=== PATIENT | female | born 1945 | race Caucasian/White ===

== ENCOUNTER → 2018-07-04 | Outpatient (CLI) | payer OTHER | END | disposition home or self-care (01) | LOC: OIH 14:05 | PROVIDERS: ATTEND Internal Medicine | DX: S93.331A Other subluxation of right foot, initial encounter (principal); S93.332A Other subluxation of left foot, initial encounter; S33.110A Subluxation of L1/L2 lumbar vertebra, initial encounter; M85.88 Other specified disorders of bone density and structure, other site; M19.041 Primary osteoarthritis, right hand; M77.32 Calcaneal spur, left foot; M77.31 Calcaneal spur, right foot; M43.26 Fusion of spine, lumbar region; M43.22 Fusion of spine, cervical region; M53.3 Sacrococcygeal disorders, not elsewhere classified; M79.642 Pain in left hand; X58.XXXA Exposure to other specified factors, initial encounter; Y93.89 Activity, other specified; Y92.89 Other specified places as the place of occurrence of the external cause; Y99.8 Other external cause status | CPT/HCPCS: 72040; 72100; 72200; 73130; 73630 ==

== ENCOUNTER 2018-10-26 05:30 | Day surgery (SDC) | payer OTHER ==
[~2018-10-26] VITALS: Ht 149.9 cm; Wt 55.5 kg
[2018-10-26 06:15] VITALS: BP 137/77
[2018-10-26 06:25] LABS: INR 1.01 (0.85-1.15); PROTHROMBIN TIME 10.6 SEC (9.6-11.6)
[2018-10-26] MEDS ORDERED: LIDOCAINE HCL-MPF 2% 5ML VIAL ONE (07:02)
[2018-10-26] MEDS ORDERED: PROPOFOL 10 MG/ML 20ML VIAL IV ONE ×2 (07:02)
[2018-10-26] MEDS ORDERED: SODIUM CHLORIDE 0.9% 1000ML 1,000 ML IV ONE (07:05)
[2018-10-26 07:24] VITALS: BP 77/35
[2018-10-26] MEDS ORDERED: DILT300C23 PO (07:24)
[2018-10-26] MEDS ORDERED: PREG50 PO (07:24)
[2018-10-26] MEDS ORDERED: ROSU5TAB PO (07:24)
[2018-10-26] MEDS ORDERED: CHOL500051 PO (07:24)
[2018-10-26] MEDS ORDERED: LACT1CAP72 PO (07:24)
[2018-10-26] MEDS ORDERED: UBID1CAP56 PO (07:24)
[2018-10-26] MEDS ORDERED: WARF3TAB59 PO (07:24)
[2018-10-26] MEDS ORDERED: LEFL10TA15 PO (07:24)
[2018-10-26] MEDS ORDERED: TRAZ150T79 PO (07:24)
[2018-10-26] MEDS ORDERED: CELE200 PO (07:24)
[2018-10-26] MEDS ORDERED: DULO60CA63 PO (07:24)
[2018-10-26] MEDS ORDERED: ETAN25I INJ (07:24)
[2018-10-26] MEDS ORDERED: FERR324T4 PO (07:24)
[2018-10-26] MEDS ORDERED: BIMA12.5OS OD (07:24)
[2018-10-26] MEDS ORDERED: MV-M1TAB20 PO (07:24)
[2018-10-26] MEDS ORDERED: DEXL60CA3 PO (07:24)
[2018-10-26] MEDS ORDERED: METO50TA18 PO (07:24)
[2018-10-26] MEDS ORDERED: LEVO100T12 PO (07:24)
[2018-10-26 07:29] VITALS: BP 85/39
[2018-10-26 07:37] VITALS: BP 93/48
[2018-10-26 07:41] VITALS: BP 115/64
== END 2018-10-26 08:00 | disposition home or self-care (01) ==
LOC: ENDO 05:30 → DAH 05:30 → ENDO 08:00
PROVIDERS: ATTEND Internal Medicine
DX: Z12.11 Encounter for screening for malignant neoplasm of colon (principal); D12.5 Benign neoplasm of sigmoid colon; K57.30 Diverticulosis of large intestine without perforation or abscess without bleeding; K64.8 Other hemorrhoids; J45.909 Unspecified asthma, uncomplicated; F41.9 Anxiety disorder, unspecified; M19.90 Unspecified osteoarthritis, unspecified site; E78.5 Hyperlipidemia, unspecified; I10 Essential (primary) hypertension; F32.9 Major depressive disorder, single episode, unspecified; E03.9 Hypothyroidism, unspecified; Z98.890 Other specified postprocedural states; Z90.710 Acquired absence of both cervix and uterus; Z98.49 Cataract extraction status, unspecified eye; Z79.899 Other long term (current) drug therapy; Z88.8 Allergy status to other drugs, medicaments and biological substances; Z88.0 Allergy status to penicillin; Z79.01 Long term (current) use of anticoagulants; I26.99 Other pulmonary embolism without acute cor pulmonale
CPT/HCPCS: 36415; 45380; 85610; 88305; 88313; 93005; A4606; J2704 ×2; J3490; J7030

== ENCOUNTER → 2018-11-15 | Outpatient (CLI) | payer OTHER ==
[~2018-11-15] MED LIST: BIMA12.5OS OD; CELE200 PO; CHOL500051 PO; DEXL60CA3 PO; DILT300C23 PO; DULO60CA63 PO; ETAN25I INJ; FERR324T4 PO; GADODIAMIDE 5 MMOL/10 ML VIAL 5 MMOL/10 ML ML IV ONE; LACT1CAP72 PO; LEFL10TA15 PO; LEVO100T12 PO; METO50TA18 PO; MV-M1TAB20 PO; PREG50 PO; ROSU5TAB PO; TRAZ150T79 PO; UBID1CAP56 PO; WARF3TAB59 PO
== END | disposition home or self-care (01) ==
LOC: RAH 09-24 14:08
PROVIDERS: ATTEND Internal Medicine
DX: M47.812 Spondylosis without myelopathy or radiculopathy, cervical region (principal); M48.02 Spinal stenosis, cervical region
CPT/HCPCS: 72156; A9579

== ENCOUNTER 2019-06-25 05:58 | Day surgery (SDC) | payer OTHER ==
[2019-06-17 16:10] VITALS: BP 119/73
[2019-06-17 16:34] LABS: BASOPHILS % (AUTO) 0.4 % (0.0-5.0); EOSINOPHILS % (AUTO) 2.5 % (0.0-8.0); HEMATOCRIT 41.5 % (36-48); MEAN CORPUSCULAR HEMOGLOBIN 31.3 pg (27.0-33.0); MEAN CORPUSCULAR VOLUME 94.8 fL (79-99); MONOCYTES % (AUTO) 4.5 % (3.0-13.0); NEUTROPHILS % (AUTO) 13.6 % (40.0-77.0); NUCLEATED RED BLOOD CELLS 0.2 % (0.0-0.19); PLATELET COUNT (AUTO) 166 K/uL (130-400); RED BLOOD CELL COUNT(AUTO) 4.38 MIL/uL (4.00-5.50); RED CELL DISTRIBUTION WIDTH 13.9 % (11.0-15.5); WHITE BLOOD COUNT (AUTO) 20.1 K/uL (4.8-10.8)
[2019-06-17 16:43] LABS: CREATININE 0.9 mg/dL (0.5-1.5); POTASSIUM 4.7 mmol/L (3.5-5.1)
--- NOTE | 2019-06-19 15:34 | NUR ---
ADVISED DOCTOR SIX ASSISTANCE MOOSE ABOUT PT WBC OF 20.1, PER DOCTOR SIX NEW ORDER FOR CBC IN THE MORNING OF PROCEDURE.
[~2019-06-25] VITALS: Ht 152.4 cm; Wt 59.7 kg
[2019-06-25] VITALS (19 sets, daily range): BP systolic 111–151; BP diastolic 59–82
[~2019-06-25 05:58] MED LIST changes: +ADV250 IH; +ALBUTEROL IH; +CHOL200013 PO; -CHOL500051 PO; +COSENTYX INJ; -DULO60CA63 PO; +DULO60CA64 PO; -ETAN25I INJ; +FERR324T PO; -FERR324T4 PO; -GADODIAMIDE 5 MMOL/10 ML VIAL 5 MMOL/10 ML ML IV ONE; +LACTATED RINGERS 1000ML 1,000 ML IV ONE; +LAMO100T66 PO; -LEFL10TA15 PO; +METO-391 PO; -METO50TA18 PO; -MV-M1TAB20 PO
[2019-06-25] MEDS: CLINDAMYCIN 900 MG/D5% WATER 50 ML IV PRN ×2 (06:33→08:35)
[2019-06-25 06:42] LABS: HEMATOCRIT 44.9 % (36-48); MEAN CORPUSCULAR HEMOGLOBIN 31.2 pg (27.0-33.0); MEAN CORPUSCULAR HGB CONC 32.8 g/dL (32.0-36.0); MEAN CORPUSCULAR VOLUME 95.2 fL (79-99); NUCLEATED RED BLOOD CELLS 0.1 % (0.0-0.19); PLATELET COUNT (AUTO) 134 K/uL (130-400); RED BLOOD CELL COUNT(AUTO) 4.71 MIL/uL (4.00-5.50); RED CELL DISTRIBUTION WIDTH 14.4 % (11.0-15.5); WHITE BLOOD COUNT (AUTO) 22.6 K/uL (4.8-10.8)
[2019-06-25] MEDS ORDERED: IXEK80AU SQ (06:43)
[2019-06-25] MEDS ORDERED: MIDAZOLAM HCL 1 MG/ML 2ML VIAL ONE ×2 (06:59→08:23)
[2019-06-25] MEDS ORDERED: LACTATED RINGERS 1000ML 1,000 ML IV SCH (07:45)
[2019-06-25] MEDS ORDERED: LIDOCAINE HCL MDV 0.5% 50ML VIAL IJ ONE (08:20)
[2019-06-25] MEDS ORDERED: PROPOFOL 10 MG/ML 20ML VIAL IV ONE (08:23)
[2019-06-25] MEDS ORDERED: FENTANYL CITRATE PF 50 MCG/1 ML 2ML VIAL ONE (08:23)
[2019-06-25] MEDS ORDERED: ONDANSETRON HCL 4 MG/2 ML VIAL ONE (08:24)
== END 2019-06-25 11:05 | disposition home or self-care (01) ==
LOC: DAH 05:58
PROVIDERS: ATTEND Neurological Surgery
DX: M79.642 Pain in left hand (principal); G56.02 Carpal tunnel syndrome, left upper limb; M19.042 Primary osteoarthritis, left hand; I10 Essential (primary) hypertension; I26.99 Other pulmonary embolism without acute cor pulmonale; K44.9 Diaphragmatic hernia without obstruction or gangrene; K21.9 Gastro-esophageal reflux disease without esophagitis; C95.90 Leukemia, unspecified not having achieved remission; K22.70 Barrett's esophagus without dysplasia; Z88.0 Allergy status to penicillin; Z88.8 Allergy status to other drugs, medicaments and biological substances; Z88.1 Allergy status to other antibiotic agents; Z79.899 Other long term (current) drug therapy
CPT/HCPCS: 36415 ×2; 64721; 64999; 80048; 85025; 85027; 93005; A4215; A4216; A4221; A4222; A4223; A4663; J2250 ×2; J2405; J2704; J3010; J3490 ×2; J7120

== ENCOUNTER 2019-07-06 18:13 | Emergency (ER) | payer OTHER ==
[~2019-07-06 18:13] MED LIST changes: -COSENTYX INJ; +IXEK80AU SQ; -LACTATED RINGERS 1000ML 1,000 ML IV ONE; -WARF3TAB59 PO
[2019-07-06] MEDS ORDERED: HYDROCODONE/ACETAMINOPHEN 10/325 MG TAB ONE (19:03)
== END 2019-07-06 21:09 | disposition home or self-care (01) ==
LOC: EDH 18:13
DX: M54.5 Low back pain (principal); I10 Essential (primary) hypertension; J45.909 Unspecified asthma, uncomplicated; E07.9 Disorder of thyroid, unspecified; K21.9 Gastro-esophageal reflux disease without esophagitis; F32.9 Major depressive disorder, single episode, unspecified; Z88.0 Allergy status to penicillin; Z88.1 Allergy status to other antibiotic agents; W18.39XA Other fall on same level, initial encounter; Y93.01 Activity, walking, marching and hiking; Y92.89 Other specified places as the place of occurrence of the external cause; Y99.8 Other external cause status
CPT/HCPCS: 72131

== ENCOUNTER 2019-07-16 18:52 | Observation (INO) | payer OTHER ==
[~2019-07-16] VITALS: Ht 154.9 cm; Wt 58.5 kg
[2019-07-16] MEDS ORDERED: FENTANYL CITRATE PF 50 MCG/1 ML 2ML VIAL ONE (19:58)
[2019-07-17] MEDS ORDERED: WARF3TAB59 PO (01:02)
--- NOTE | 2019-07-17 01:02 | NUR ---
HOME MEDS PATIENT DID NOT BRING MEDICATION BOTTLES. PATIENT PROVIDED WRITTEN LIST OF HOME MEDS.
[2019-07-17 01:09] LABS: BASOPHILS % (AUTO) 0.4 % (0.0-5.0); EOSINOPHILS % (AUTO) 3.2 % (0.0-8.0); HEMATOCRIT 39.8 % (36-48); LYMPHOCYTES % (AUTO) 76.5 % (21.0-51.0); MEAN CORPUSCULAR HEMOGLOBIN 30.8 pg (27.0-33.0); MEAN CORPUSCULAR VOLUME 93.5 fL (79-99); MONOCYTES % (AUTO) 3.2 % (3.0-13.0); NEUTROPHILS % (AUTO) 16.7 % (40.0-77.0); NUCLEATED RED BLOOD CELLS 0.1 % (0.0-0.19); PLATELET COUNT (AUTO) 223 K/uL (130-400); RED BLOOD CELL COUNT(AUTO) 4.26 MIL/uL (4.00-5.50); WHITE BLOOD COUNT (AUTO) 29.8 K/uL (4.8-10.8)
[2019-07-17 01:17] LABS: CREATININE 0.9 mg/dL (0.5-1.5); POTASSIUM 4.5 mmol/L (3.5-5.1)
[2019-07-17 01:21] LABS: INR 1.83 (0.85-1.15); PARTIAL THROMBOPLASTIN TIME 33.9 SEC (26.3-35.5); PROTHROMBIN TIME 18.8 SEC (9.6-11.6)
[2019-07-17 01:22] LABS: ALBUMIN 3.1 g/dL (3.5-5.0); BILIRUBIN,TOTAL 0.3 mg/dL (0.2-1.0); TOTAL PROTEIN, SERUM 5.8 g/dL (6.0-8.3)
[2019-07-17] MEDS: CEFTRIAXONE SODIUM 1 GM IVP SCH ×2 (03:30→15:33)
[2019-07-17] MEDS: SODIUM CHLORIDE 0.9% 1000ML 1,000 ML IV SCH ×2 (03:30→17:01)
[2019-07-17] MEDS ORDERED: CEFTRIAXONE SODIUM 1 GM ONE (03:35)
[2019-07-17] MEDS ORDERED: SODIUM CHLORIDE 0.9% 1000ML 1,000 ML IV ONE (03:36)
[2019-07-17] MEDS ORDERED: WATER FOR INJECTION,STERILE 5 ML VIAL INJ SCH (04:00)
[2019-07-17] MEDS ORDERED: KETOROLAC TROMETHAMINE 15MG/ML ONE (05:17)
[2019-07-17 05:23] LABS: APPEARANCE,URINE Clear (CLEAR); BILIRUBIN,URINE Negative (NEGATIVE); COLOR,URINE Yellow (YELLOW); GLUCOSE, URINE (UA) Negative (NEGATIVE); KETONES,URINE Negative (NEGATIVE); LEUKOCYTE ESTERASE ,URINE Trace (NEGATIVE); NITRATE,URINE Negative (NEGATIVE); OCCULT BLOOD,URINE Negative (NEGATIVE); PH,URINE 6.5 (5.0-8.0); PROTEIN,URINE Negative (NEGATIVE)
[2019-07-17 05:37] LABS: BACTERIA,URINE None Seen /HPF (None Seen); RBC,URINE None Seen /HPF (0-1); SQUAMOUS EPITHELIAL CELL,UR Rare /HPF (0-2); WBC,URINE None Seen /HPF (0-1)
[2019-07-17] MEDS: LEVOTHYROXINE 100 MCG TABLET PO SCH (07:49)
[2019-07-17 08:40] VITALS: BP 144/78
--- NOTE | 2019-07-17 08:40 | NUR ---
Dr. Mike alcaraz called for consultation, Spoke with MD Tran pending to see pt.
[2019-07-17] MEDS: DULOXETINE HCL 30 MG CAP PO SCH ×2 (09:00→20:25)
[2019-07-17] MEDS: METOPROLOL TARTRATE 25 MG TAB PO SCH ×2 (09:00→20:34)
[2019-07-17] MEDS: DILTIAZEM HCL 300 MG PO SCH (09:00)
[2019-07-17] MEDS: LAMOTRIGINE 25 MG TAB PO SCH (09:00)
[2019-07-17] MEDS: PREGABALIN 25 MG CAP PO SCH ×2 (09:00→20:26)
[2019-07-17] MEDS: FAMOTIDINE 20MG TAB 20 MG TAB PO SCH ×2 (09:00→20:26)
[2019-07-17] MEDS: KETOROLAC TROMETHAMINE 15MG/ML IV PRN ×3 (09:07→20:28)
[2019-07-17 11:00] VITALS: BP 141/81
--- NOTE | 2019-07-17 15:00 | NUR ---
INIITAL AND REFERRAL MET W PATIENT ALONE, AAOX3, STATES LIVES W PARTNER WHO IS ALSO FRAIL, STATES HAS BAD ARTHRITIS AND SCOLISIOS, USES A ROLLING WALKER 100% OF THE TIME, HOME IS SAFE AND ACCESSIBLE- STATES SHE IS GOING TO [facility] FOR REHAB, THAT IS WHAT SHE NEEDS, CONSENT OBSTAINED AND REFERALL SENT Addendum: 07/17/19 at 1917 by LILIANA CASAREZ RN CM Amended: Links added.
--- NOTE | 2019-07-17 15:18 | NUR ---
CM NOTES MET W PATIENT, ORDER REC FROM CM DIRECTOR TO ASSIST WITH OUT PATIENT PT OR HOME HEALTH, WENT TO SPEAK TO PT TO DO INITIAL CM . PATIENT STATES SHE NOT GOING HOME, SHE IS GOING TO A FACILITY BECAUSE SHE HAS BEEN FALLING AND THERE IS NO WON HOEM OT LOOK AFTER HER- LIVES W A FRIEND BUT HER FRIEND IS ALSO FRAIL AND UNABLE TO ASSIST. PT STATES USES A ROLLING WALKER, WAS SUPPOSED TO HAVE OUT PATIENT PT SET UP BY WENDIE ANAYA BUT IT HAS NOT HAPPENED YET, IT HAS TAKEN A LONG ITME , AND THAT SHE THINKS IT IS GOING TO TAKE TOO LONG. PT SATES SHE DOES NOT FEEL SAFE TO GO HOME CALL TO JOSEPHINE TO WHO WAS PUTTING IN HIS FINDINGS. FORM HIS EVAL WILL REQUEST NOTES NORBERTO AND CALL TO LEIA PATEL TO FACILITATE REFERRAL/SUBMISSION TO [facility]
[2019-07-17 16:00] VITALS: BP 139/83
[2019-07-17] MEDS ORDERED: WARFARIN SODIUM 1 MG TAB PO SCH ×3 (16:00→21:00)
--- NOTE | 2019-07-17 16:26 | NUR ---
PT STATES SHE TAKE HER WARFARIN AT NIGHT, TIME CHANGED FOR THE EVENING AT 2100
--- NOTE | 2019-07-17 16:30 | NUR ---
UPDATED PT, PT NOW SAYS SHE HAS TO ASK HER PARTNER IF ITS OK IF SHE GOES- CALL MADE, ALL OK FOR 5 DAYS OF PT PE HER PARTNER LAUREL HERE TO SEE PT. REFERRAL HAS BEEN SUBMITTED
[2019-07-17 19:28] VITALS: BP 147/74
--- NOTE | 2019-07-17 20:25 | NUR ---
ASSESS PT COMPLAINTS OF PAINS ON HER SACRAL AREA. SHIFT ASSESSMENT DONE, PLEASE REFER TO CHART. DUE MEDS ADMINISTERED AND TORADOL IV ADMINISTERED FOR PAINS. HELD METOPROLOL DOSE DUE TO BRADYCARDIA. PT CLAIMS SHE ONLY TAKES 2.5MG OF COUMADIN. HOME MED CLARIFIED AND CALLED PHARMACY FOR A DOSE. KEPT RESTED AND COMFORTABLE. WILL RE-ASSESS PT. PT'S CALL LIGHT WITHIN REACH. Addendum: 07/18/19 at 0122 by MARGARITA ROMAN RN RN Amended: Links added.
[2019-07-17] MEDS ORDERED: ATORVASTATIN CALCIUM 10 MG TABLET PO SCH (21:00)
[2019-07-17] MEDS ORDERED: TRAZODONE HCL 100 MG TABLET PO SCH (21:00)
[2019-07-17] MEDS ORDERED: WARFARIN SODIUM 2.5 MG TAB PO SCH (21:02)
[2019-07-17 23:09] VITALS: BP 166/83
--- NOTE | 2019-07-18 02:00 | NUR ---
ROUNDS PT FAIRLY ASLEEP WITH RESPIRATIONS EVEN AND UNLABORED. NO DISTRESS NOTED. KEPT UNDISTURBED FOR NOW. WILL MONITOR PT. CALL LIGHT WITHIN REACH.
[2019-07-18] MEDS: CEFTRIAXONE SODIUM 1 GM IVP SCH (02:10)
[2019-07-18] MEDS: SODIUM CHLORIDE 0.9% 1000ML 1,000 ML IV SCH ×2 (02:10→05:33)
[2019-07-18 03:49] VITALS: BP 125/59
[2019-07-18] MEDS: LEVOTHYROXINE 100 MCG TABLET PO SCH (05:35)
[2019-07-18] MEDS: KETOROLAC TROMETHAMINE 15MG/ML IV PRN ×2 (05:35→11:47)
--- NOTE | 2019-07-18 05:35 | NUR ---
PAIN PT AWAKENED AND WAS ASSISTED TO THE RESTROOM. COMPLAINTS OF PAINS ON HER BACK AND SACRUM. MEDICATED WITH TORADOL IV. KEPT COMFORTABLE IN BED. WILL RE-ASSESS PT. FOR MORE CARE AND MANAGEMENT.
[2019-07-18 06:36] LABS: BASOPHILS % (AUTO) 0.4 % (0.0-5.0); EOSINOPHILS % (AUTO) 3.5 % (0.0-8.0); HEMATOCRIT 38.2 % (36-48); LYMPHOCYTES % (AUTO) 83.1 % (21.0-51.0); MEAN CORPUSCULAR HEMOGLOBIN 30.7 pg (27.0-33.0); MEAN CORPUSCULAR HGB CONC 33.3 g/dL (32.0-36.0); MEAN CORPUSCULAR VOLUME 92.3 fL (79-99); MONOCYTES % (AUTO) 3.3 % (3.0-13.0); NEUTROPHILS % (AUTO) 9.7 % (40.0-77.0); NUCLEATED RED BLOOD CELLS 0.1 % (0.0-0.19); PLATELET COUNT (AUTO) 231 K/uL (130-400); RED BLOOD CELL COUNT(AUTO) 4.14 MIL/uL (4.00-5.50); RED CELL DISTRIBUTION WIDTH 14.3 % (11.0-15.5); WHITE BLOOD COUNT (AUTO) 23.9 K/uL (4.8-10.8)
[2019-07-18 06:43] LABS: CREATININE 0.8 mg/dL (0.5-1.5); POTASSIUM 4.1 mmol/L (3.5-5.1)
[2019-07-18 06:54] LABS: INR 1.35 (0.85-1.15)
[2019-07-18 07:13] VITALS: BP 140/70
[2019-07-18] MEDS: DILTIAZEM HCL 300 MG PO SCH (09:00)
[2019-07-18] MEDS: PREGABALIN 25 MG CAP PO SCH (09:04)
[2019-07-18] MEDS: LAMOTRIGINE 25 MG TAB PO SCH (09:04)
[2019-07-18] MEDS: DULOXETINE HCL 30 MG CAP PO SCH (09:04)
[2019-07-18] MEDS: FAMOTIDINE 20MG TAB 20 MG TAB PO SCH (09:05)
[2019-07-18 10:34] VITALS: BP 140/77
[2019-07-18] MEDS: METOPROLOL TARTRATE 25 MG TAB PO SCH (11:48)
== END 2019-07-18 14:48 ==
LOC: EDH 18:52 → EDHIP 23:38 → 4CH 07-17 08:02
PROVIDERS: ADMIT Internal Medicine; ATTEND Internal Medicine
DX: M53.3 Sacrococcygeal disorders, not elsewhere classified (principal); M54.5 Low back pain; R00.1 Bradycardia, unspecified; D72.829 Elevated white blood cell count, unspecified; N39.0 Urinary tract infection, site not specified; E44.0 Moderate protein-calorie malnutrition; M81.0 Age-related osteoporosis without current pathological fracture; M47.898 Other spondylosis, sacral and sacrococcygeal region; K21.9 Gastro-esophageal reflux disease without esophagitis; M41.9 Scoliosis, unspecified; J45.909 Unspecified asthma, uncomplicated; F32.9 Major depressive disorder, single episode, unspecified; F42.9 Obsessive-compulsive disorder, unspecified; L40.9 Psoriasis, unspecified; E03.9 Hypothyroidism, unspecified; I10 Essential (primary) hypertension; Z87.11 Personal history of peptic ulcer disease; Z98.1 Arthrodesis status; Z86.711 Personal history of pulmonary embolism; Z85.6 Personal history of leukemia; Z79.01 Long term (current) use of anticoagulants; Z79.899 Other long term (current) drug therapy; Z88.0 Allergy status to penicillin; Z88.1 Allergy status to other antibiotic agents; Z88.8 Allergy status to other drugs, medicaments and biological substances; W19.XXXA Unspecified fall, initial encounter; Y93.89 Activity, other specified; Y92.89 Other specified places as the place of occurrence of the external cause
CPT/HCPCS: 36415 ×2; 70450; 72125; 74176; 80048; 80053; 81001; 85025 ×2; 85610 ×2; 85730 ×2; 93005; 96374; 96375; 96376 ×2; 97039 ×2; 97116; 97161; 99284; G0378 ×39; G8978; G8979; G8980; G8981; G8982; G8983; J0696 ×4; J1885 ×6; J3010; J7030 ×2

== ENCOUNTER → 2019-08-14 | Outpatient (CLI) | payer OTHER ==
[~2019-08-14] MED LIST changes: +LAMO200T10 PO; +TOFA10TA PO; +WARF2.5T85 PO; +WARF3TAB59 PO
== END | disposition home or self-care (01) ==
LOC: RAH 15:41
PROVIDERS: ATTEND Physical Medicine & Rehabilitation
DX: M25.551 Pain in right hip (principal)
CPT/HCPCS: 73502

== ENCOUNTER 2019-08-21 03:06 | Inpatient (IN) | payer OTHER ==
[~2019-08-21] VITALS: Ht 152.4 cm; Wt 59.0 kg
[~2019-08-21 03:06] MED LIST changes: -LAMO200T10 PO; -TOFA10TA PO; -WARF2.5T85 PO
[2019-08-21] MEDS ORDERED: KETOROLAC TROMETHAMINE 30MG/ML ONE (03:36)
[2019-08-21] MEDS ORDERED: HYDROMORPHONE 1 MG/1 ML AMP ONE ×2 (03:37→10:19)
[2019-08-21 05:14] LABS: BASOPHILS % (AUTO) 0.3 % (0.0-5.0); LYMPHOCYTES % (AUTO) 81.7 % (21.0-51.0); MEAN CORPUSCULAR HEMOGLOBIN 30.4 pg (27.0-33.0); MEAN CORPUSCULAR HGB CONC 32.9 g/dL (32.0-36.0); MEAN CORPUSCULAR VOLUME 92.4 fL (79-99); MONOCYTES % (AUTO) 2.7 % (3.0-13.0); NEUTROPHILS % (AUTO) 15.3 % (40.0-77.0); NUCLEATED RED BLOOD CELLS 0.1 % (0.0-0.19); PLATELET COUNT (AUTO) 104 K/uL (130-400); RED BLOOD CELL COUNT(AUTO) 4.33 MIL/uL (4.00-5.50); RED CELL DISTRIBUTION WIDTH 14.6 % (11.0-15.5); WHITE BLOOD COUNT (AUTO) 29.5 K/uL (4.8-10.8)
[2019-08-21] MEDS ORDERED: ONDANSETRON HCL 4 MG/2 ML VIAL IV PRN (05:15)
[2019-08-21] MEDS ORDERED: LACTULOSE 20 GM/30 ML UDCUP PO PRN (05:15)
[2019-08-21] MEDS ORDERED: ACETAMINOPHEN 325 MG TAB PO PRN ×2 (05:15)
[2019-08-21 05:20] LABS: CREATININE 0.8 mg/dL (0.5-1.5)
[2019-08-21 07:26] LABS: PLATELET MORPHOLOGY COMMENT SLIGHTLY DECREASED
[2019-08-21] MEDS: FAMOTIDINE 20MG TAB 20 MG TAB PO SCH ×2 (09:00→21:00)
[2019-08-21] MEDS: LIDOCAINE 5% TOPICAL PATCH TP SCH (09:00)
[2019-08-21] MEDS: ENOXAPARIN SODIUM 30 MG/0.3 ML SQ SCH (09:00)
[2019-08-21] MEDS ORDERED: FAMOTIDINE 20MG TAB 20 MG TAB ONE (10:05)
[2019-08-21] MEDS ORDERED: ENOXAPARIN SODIUM 30 MG/0.3 ML SQ ONE (10:05)
[2019-08-21 12:00] VITALS: BP 150/88
--- NOTE | 2019-08-21 13:57 | NUR ---
DCP: HOME Sw met with pt who lives with her Life partner Keyla Decker [phone]. Pt eports he completes her ADLS with a lot of difficulty. Rekha educated on provider services, pt is over income. Pt has asthma- has nebulizer, inhalers, shower chair, walker and cane, no HH services. Pt denies dc needs at thistime. Plan is home with family Addendum: 08/21/19 at 1402 by MINA BURNETT SS Amended: Links added.
[2019-08-21 16:00] VITALS: BP 140/76
[2019-08-21] MEDS: HYDROMORPHONE 1 MG/1 ML AMP IV PRN ×3 (17:02→23:05)
[2019-08-21] MEDS ORDERED: PHARMACY COMMUNICATION MISC SCH (18:15)
[2019-08-21 20:00] VITALS: BP 144/76
--- NOTE | 2019-08-21 21:00 | NUR ---
PATIENT MEDICATIONS ENTERED, REVIEWED AND CONTINUED BY BLANKA AYON PATIENT AWARE OF THIS AND OF PLAN OF CARE HOWEVER, PATIENT STATES SHE ALREADY TOOK HER HOME MEDICATION FOR NIGHT TIME PILLS, INCLUDING THE 2.5 MG WARFARIN' MODELER AWARE
[2019-08-21] MEDS ORDERED: TOFA10TA PO (21:09)
[2019-08-21] MEDS ORDERED: WARF2.5T85 PO (21:09)
[2019-08-21] MEDS ORDERED: LAMO200T10 PO (21:11)
[2019-08-21] MEDS: LATANOPROST 2.5 ML DROPS OU SCH (22:25)
[2019-08-21 23:56] VITALS: BP 151/74
[2019-08-22 03:42] VITALS: BP 165/83
[2019-08-22] MEDS: HYDROMORPHONE 1 MG/1 ML AMP IV PRN ×4 (03:45→21:00)
[2019-08-22 04:29] LABS: BASOPHILS % (AUTO) 0.2 % (0.0-5.0); EOSINOPHILS % (AUTO) 0.2 % (0.0-8.0); MEAN CORPUSCULAR HEMOGLOBIN 30.3 pg (27.0-33.0); MEAN CORPUSCULAR HGB CONC 32.8 g/dL (32.0-36.0); MEAN CORPUSCULAR VOLUME 92.4 fL (79-99); NEUTROPHILS % (AUTO) 19.6 % (40.0-77.0); PLATELET COUNT (AUTO) 105 K/uL (130-400); RED BLOOD CELL COUNT(AUTO) 3.79 MIL/uL (4.00-5.50); RED CELL DISTRIBUTION WIDTH 14.5 % (11.0-15.5); WHITE BLOOD COUNT (AUTO) 27.4 K/uL (4.8-10.8)
[2019-08-22 04:31] LABS: INR 1.69 (0.85-1.15); PARTIAL THROMBOPLASTIN TIME 28.5 SEC (26.3-35.5); PROTHROMBIN TIME 17.4 SEC (9.6-11.6)
[2019-08-22 04:37] LABS: CREATININE 0.8 mg/dL (0.5-1.5); POTASSIUM 4.3 mmol/L (3.5-5.1)
[2019-08-22] MEDS: LEVOTHYROXINE 100 MCG TABLET PO SCH (06:24)
[2019-08-22 07:30] VITALS: BP 158/83
[2019-08-22] MEDS: **HM** VIT D3 2000 UNITS PO SCH (09:00)
[2019-08-22] MEDS: XELJANZ 11 MG PO SCH (09:00)
[2019-08-22] MEDS: LACTOBACILLUS RHAMNOSUS GG 1 EACH CAP.SPRINK PO SCH (09:09)
[2019-08-22] MEDS: FAMOTIDINE 20MG TAB 20 MG TAB PO SCH ×2 (09:09→20:59)
[2019-08-22] MEDS: ATORVASTATIN CALCIUM 10 MG TABLET PO SCH (09:09)
[2019-08-22] MEDS: DILTIAZEM HCL 180 MG CAP.SR.24H PO SCH (09:10)
[2019-08-22] MEDS: METOPROLOL TARTRATE 25 MG TAB PO SCH ×2 (09:10→21:00)
[2019-08-22] MEDS: DULOXETINE HCL 30 MG CAP PO SCH ×2 (09:14→20:59)
[2019-08-22] MEDS: LAMOTRIGINE 25 MG TAB PO SCH (09:15)
[2019-08-22] MEDS: PREGABALIN 25 MG CAP PO SCH ×2 (09:22→20:59)
[2019-08-22] MEDS: LIDOCAINE 5% TOPICAL PATCH TP SCH (09:25)
[2019-08-22] MEDS: ENOXAPARIN SODIUM 30 MG/0.3 ML SQ SCH (09:36)
[2019-08-22] MEDS: DILTIAZEM HCL 120 MG CAP.SR.24H PO SCH (09:40)
--- NOTE | 2019-08-22 09:41 | NUR ---
Noemí declines taking warfarin at this time stating she takes it in the evening.
--- NOTE | 2019-08-22 10:17 | NUR ---
No skilled PT evroman done in , KELLY George needs to verify from Dr. Huynh the weight bearing status and if okay for the physical therapist to evaluate and treat. Addendum: 08/22/19 at 1019 by LIUDMILA PERDOMO, PT PT Amended: Links added.
[2019-08-22 11:00] VITALS: BP 156/87
[2019-08-22] MEDS: ALBUTEROL SULFATE 0.083% 2.5 MG/3 ML INH IH SCH ×3 (12:46→23:13)
--- NOTE | 2019-08-22 13:00 | NUR ---
CM Note: [facility] pending ins auth and acceptance CM faxed order, clinicals, [facility] to [facility], confirmation received. CM spoke to Winter made aware of referral, will come eval pt, aware pt is pending PT eval and treat today, will fax notes once available. Pt pending approval and acceptance. EMS filled out pending to be faxed. Primary nurse aware. CM to cont to follow up.
--- NOTE | 2019-08-22 15:12 | NUR ---
1500 had pt sign LU Letter.Faxed to [phone] in chart under consent tab.
--- NOTE | 2019-08-22 15:28 | NUR ---
CM Note: [employer] pending ins auth CM spoke to Winter [facility]/[employer], currently on her to assess pt. Pt pending approval and acceptance. Primary nurse aware. EMS arranged and faxed for today in case pt get approved, primary nurse to call [facility] once pt ready to DC. Primary nurse aware. CM to cont to follow up.
[2019-08-22 16:00] VITALS: BP 132/69
[2019-08-22] MEDS: KETOROLAC TROMETHAMINE 15MG/ML IV PRN (17:18)
[2019-08-22] MEDS: WARFARIN SODIUM 2.5 MG TAB PO SCH (17:19)
[2019-08-22] MEDS: BUDESONIDE 0.5 MG/2 ML INH IH SCH (18:50)
[2019-08-22 19:35] VITALS: BP 120/64
[2019-08-22] MEDS: TRAZODONE HCL 100 MG TABLET PO SCH (21:00)
[2019-08-22] MEDS: LATANOPROST 2.5 ML DROPS OU SCH (21:00)
[2019-08-22] MEDS ORDERED: BIMATOPROST OD SCH (21:00)
[2019-08-23] VITALS (7 sets, daily range): BP systolic 112–148; BP diastolic 56–80
[2019-08-23 04:17] LABS: BASOPHILS % (AUTO) 0.2 % (0.0-5.0); EOSINOPHILS % (AUTO) 0.4 % (0.0-8.0); HEMATOCRIT 33.9 % (36-48); LYMPHOCYTES % (AUTO) 81.5 % (21.0-51.0); MEAN CORPUSCULAR HEMOGLOBIN 30.8 pg (27.0-33.0); MEAN CORPUSCULAR HGB CONC 32.8 g/dL (32.0-36.0); MEAN CORPUSCULAR VOLUME 93.9 fL (79-99); MONOCYTES % (AUTO) 4.7 % (3.0-13.0); NEUTROPHILS % (AUTO) 13.2 % (40.0-77.0); NUCLEATED RED BLOOD CELLS 0.1 % (0.0-0.19); PLATELET COUNT (AUTO) 90 K/uL (130-400); RED BLOOD CELL COUNT(AUTO) 3.61 MIL/uL (4.00-5.50); RED CELL DISTRIBUTION WIDTH 14.6 % (11.0-15.5); WHITE BLOOD COUNT (AUTO) 23.1 K/uL (4.8-10.8)
[2019-08-23 04:33] LABS: CREATININE 0.8 mg/dL (0.5-1.5); MAGNESIUM 1.9 mg/dL (1.80-2.40); POTASSIUM 4.3 mmol/L (3.5-5.1)
[2019-08-23] MEDS: LEVOTHYROXINE 100 MCG TABLET PO SCH (05:56)
[2019-08-23] MEDS: ALBUTEROL SULFATE 0.083% 2.5 MG/3 ML INH IH SCH ×4 (06:21→23:55)
[2019-08-23] MEDS: BUDESONIDE 0.5 MG/2 ML INH IH SCH ×2 (06:21→19:41)
[2019-08-23] MEDS: HYDROMORPHONE 1 MG/1 ML AMP IV PRN (07:02)
[2019-08-23] MEDS: XELJANZ 11 MG PO SCH (09:00)
[2019-08-23] MEDS: **HM** VIT D3 2000 UNITS PO SCH (09:00)
[2019-08-23] MEDS: LIDOCAINE 5% TOPICAL PATCH TP SCH (09:00)
[2019-08-23] MEDS: DULOXETINE HCL 30 MG CAP PO SCH ×2 (09:13→20:08)
[2019-08-23] MEDS: ATORVASTATIN CALCIUM 10 MG TABLET PO SCH (09:13)
[2019-08-23] MEDS: FAMOTIDINE 20MG TAB 20 MG TAB PO SCH ×2 (09:13→20:21)
[2019-08-23] MEDS: METOPROLOL TARTRATE 25 MG TAB PO SCH ×3 (09:13→20:20)
[2019-08-23] MEDS: LACTOBACILLUS RHAMNOSUS GG 1 EACH CAP.SPRINK PO SCH (09:13)
[2019-08-23] MEDS: PREGABALIN 25 MG CAP PO SCH ×2 (09:13→20:08)
[2019-08-23] MEDS: DILTIAZEM HCL 120 MG CAP.SR.24H PO SCH (09:14)
[2019-08-23] MEDS: DILTIAZEM HCL 180 MG CAP.SR.24H PO SCH (09:14)
[2019-08-23] MEDS: LAMOTRIGINE 25 MG TAB PO SCH (09:14)
--- NOTE | 2019-08-23 09:21 | NUR ---
Patient declined coumadin at this time, stating she will take it in the afternoon according to her personal schedule. Lidocaine patch held due to patient request, stated that it did not help her pain yesterday.
--- NOTE | 2019-08-23 12:18 | NUR ---
CM Note: [facility] [employer] pending ins auth CM spoke to Winter [place]/[facility] [employer], received PT notes this morning and already forwarded to insurance. Pt pending ins auth at this time. EMS arranged and faxed for today, primary nurse to call [facility] once pt ready to DC. Primary nurse aware. CM to cont to follow up.
[2019-08-23] MEDS: KETOROLAC TROMETHAMINE 15MG/ML IV PRN (16:40)
--- NOTE | 2019-08-23 16:57 | NUR ---
CM Note: [facility] [employer] ins auth CM spoke to Winter w/[employer]. Pt has ins auth. EMS arranged for today, will need to be fax tomorrow w/current date. As per Dr Russell dcp for tomorrow instead. Primary nurse aware. CM to cont to follow up.
[2019-08-23] MEDS: WARFARIN SODIUM 2.5 MG TAB PO SCH (20:07)
[2019-08-23] MEDS: LATANOPROST 2.5 ML DROPS OU SCH (20:08)
[2019-08-23] MEDS: TRAZODONE HCL 100 MG TABLET PO SCH (20:08)
[2019-08-24 03:30] VITALS: BP 113/59
[2019-08-24] MEDS: LEVOTHYROXINE 100 MCG TABLET PO SCH (05:45)
[2019-08-24] MEDS: KETOROLAC TROMETHAMINE 15MG/ML IV PRN (06:31)
[2019-08-24 08:00] VITALS: BP 122/62
[2019-08-24] MEDS: BUDESONIDE 0.5 MG/2 ML INH IH SCH (08:23)
[2019-08-24] MEDS: ALBUTEROL SULFATE 0.083% 2.5 MG/3 ML INH IH SCH (08:23)
[2019-08-24] MEDS: **HM** VIT D3 2000 UNITS PO SCH (09:00)
[2019-08-24] MEDS: XELJANZ 11 MG PO SCH (09:00)
[2019-08-24] MEDS: ATORVASTATIN CALCIUM 10 MG TABLET PO SCH (09:00)
[2019-08-24] MEDS: WARFARIN SODIUM 2.5 MG TAB PO SCH (09:00)
[2019-08-24] MEDS: METOPROLOL TARTRATE 25 MG TAB PO SCH (09:00)
[2019-08-24] MEDS: PREGABALIN 25 MG CAP PO SCH (09:39)
[2019-08-24] MEDS: FAMOTIDINE 20MG TAB 20 MG TAB PO SCH (09:40)
[2019-08-24] MEDS: LACTOBACILLUS RHAMNOSUS GG 1 EACH CAP.SPRINK PO SCH (09:41)
[2019-08-24] MEDS: DILTIAZEM HCL 180 MG CAP.SR.24H PO SCH (09:41)
[2019-08-24] MEDS: DULOXETINE HCL 30 MG CAP PO SCH (09:41)
[2019-08-24] MEDS: DILTIAZEM HCL 120 MG CAP.SR.24H PO SCH (09:42)
[2019-08-24] MEDS: LIDOCAINE 5% TOPICAL PATCH TP SCH (09:42)
[2019-08-24 11:00] VITALS: BP 124/72
--- NOTE | 2019-08-24 13:00 | NUR ---
Report given to Cody nurse from [facility]
--- NOTE | 2019-08-24 13:30 | NUR ---
Pt d/c instructions given pending transfer to [facility] using teach back technique re; new meds, home meds, s/s to watch for and when to call md or 911. Follow up with your primary doctor in 1 week. Call to set up an appointment. Follow up in [address] Huynh. Call to set up an appointment at phone # [phone]. You will continue with rehabilitation at the Inpatient rehab for physical therapy at [facility], You will continue pain medications as needed. may apply ice pack to affected Leg and hip daily for 20 minutes as needed for control of pain. Iv out, intact, no bleeding, Pt will check INR tomorrow in am. at [facility]. Pt is AAox3, no distress, denies any questions at this time.
[2019-08-24] MEDS: LAMOTRIGINE 25 MG TAB PO SCH (15:11)
== END 2019-08-24 16:20 | DRG 536 ==
LOC: EDH 03:06 → EDHIP 05:14 → OBSVTOIN 05:14 → 4DH 11:41 → 4CH 08-23 17:38
PROVIDERS: ADMIT Internal Medicine; ATTEND Internal Medicine
DX: S32.591A Other specified fracture of right pubis, initial encounter for closed fracture (principal); C91.10 Chronic lymphocytic leukemia of B-cell type not having achieved remission; J45.909 Unspecified asthma, uncomplicated; I10 Essential (primary) hypertension; E03.9 Hypothyroidism, unspecified; E78.5 Hyperlipidemia, unspecified; F32.9 Major depressive disorder, single episode, unspecified; F42.9 Obsessive-compulsive disorder, unspecified; K21.9 Gastro-esophageal reflux disease without esophagitis; L40.50 Arthropathic psoriasis, unspecified; Z79.01 Long term (current) use of anticoagulants; Z86.711 Personal history of pulmonary embolism; Z88.0 Allergy status to penicillin; Z88.8 Allergy status to other drugs, medicaments and biological substances; Y93.89 Activity, other specified; Y92.89 Other specified places as the place of occurrence of the external cause; Y99.8 Other external cause status
CPT/HCPCS: 36415; 72192; 80048; 83735; 85025; 85610; 85730; 94640; 94664; 97039; G0378; J1170; J1650; J1885